=== PATIENT | female | born 1990 | race American Indian/Alaskan Native ===

== ENCOUNTER 2020-09-12 19:08 | Emergency (ER) | payer MEDICAID ==
[~2020-09-12] VITALS: Ht 167.6 cm; Wt 55.0 kg
[2020-09-12] MEDS ORDERED: normal saline 1000ML IV soln IVB ONE (19:40)
[2020-09-12] MEDS ORDERED: ondansetron/PF 4mg/2ml inj IV ONE (19:40)
[2020-09-12 19:45] LABS: BASOPHILS # (AUTO) 0.1 X10'3 (0-0.2); BASOPHILS % (AUTO) 0.4 % (0-1); EOSINOPHILS % (AUTO) 0 % (0-6); HEMOGLOBIN 15.1 g/dl (12.0-16.0); LYMPHOCYTES # (AUTO) 2.4 X10'3 (1.1-4.8); LYMPHOCYTES % (AUTO) 10.8 % (21-51); MEAN CORPUSCULAR HEMOGLOBIN 34.5 PG (27.0-31.0); MEAN CORPUSCULAR HGB CONC 34.4 g/dL (33.0-36.5); MEAN CORPUSCULAR VOLUME 100.4 FL (78-98); MEAN PLATELET VOLUME 6.8 FL (7.4-10.4); MONOCYTES # (AUTO) 0.9 X10'3 (0-0.9); MONOCYTES % (AUTO) 4.1 % (2-12); NEUTROPHILS # (AUTO) 18.9 X10'3 (1.8-7.7); NEUTROPHILS % (AUTO) 84.7 % (42-75); PLATELET COUNT 529 X10'3 (140-440); RED BLOOD COUNT 4.38 X10'6 (4.20-5.60); RED CELL DISTRIBUTION WIDTH 13.2 % (11.5-14.5); WHITE BLOOD COUNT 22.3 X10'3 (4.5-11.0)
--- NOTE | 2020-09-12 19:46 | NUR ---
PATIENT REFUSING IV AND IV MEDICATION PA AWARE
[2020-09-12 19:47] LABS: URINE HCG NEGATIVE (NEG)
[2020-09-12] MEDS: morphine 4 MG/ML inj SYRINge IV PRN ×2 (19:49→21:11)
--- NOTE | 2020-09-12 19:53 | NUR ---
US AT BEDSIDE
[2020-09-12 19:54] LABS: CLARITY,URINE CLEAR (Clear); COLOR,URINE YELLOW (Yellow); GLUCOSE, URINE NEGATIVE (Neg); KETONES,URINE TRACE mg/dl (Neg); LEUKOCYTE ESTERASE ,URINE TRACE (Neg); NITRITES, URINE POSITIVE (Neg); OCCULT BLOOD,URINE NEGATIVE (Neg); PROTEIN,URINE 30 mg/dl (Neg)
[2020-09-12 20:00] LABS: BACTERIA,URINE 4+ /HPF (Neg); RBC,URINE NONE SEEN /HPF (0-2); SQUAMOUS EPITHELIAL CELL,UR FEW /LPF (FEW); WBC,URINE 0-4 /HPF (0-4)
[2020-09-12 20:04] LABS: UA COLLECTION TYPE CLN CATCH MIDSTREAM
[2020-09-12 20:05] LABS: ALANINE AMINOTRANSFERASE 15 U/L (12-78); ALBUMIN 3.6 G/DL (3.4-5.0); ALBUMIN/GLOBULIN RATIO 0.8 (1.1-1.5); ALKALINE PHOSPHATASE 86 IU/L (46-116); ANION GAP 10 (8-16); ASPARTATE AMINO TRANSFERASE 10 U/L (10-37); BILIRUBIN,TOTAL 0.9 MG/DL (0.1-1.0); BLOOD UREA NITROGEN 7 MG/DL (7-18); BUN/CREATININE RATIO 7.4 (6.6-38.0); CALCIUM 9.6 MG/DL (8.5-10.1); CHLORIDE 103 MMOL/L (99-107); CREATININE 0.94 MG/DL (0.40-0.90); GLUCOSE 130 MG/DL (70-104); LIPASE < 50 U/L (73-393); POTASSIUM 3.1 MMOL/L (3.5-5.1); SODIUM 139 MMOL/L (135-145); TOTAL CARBON DIOXIDE 25.8 MMOL/L (24-32); eGFR 71 ML/MIN
[2020-09-12] MEDS ORDERED: ketorolac trometh. 30mg/ml inj. IV ONE (20:40)
[2020-09-12] MEDS ORDERED: CefTRIAXone 2gm/D5W 50ml BAG 50 ML IV ONE (20:40)
[2020-09-12] MEDS ORDERED: normal saline 1000ML IV soln IV ONE (20:40)
[2020-09-12 21:17] LABS: ETHANOL < 0.010 GM/DL (0.0-0.010)
[2020-09-12 21:26] LABS: URINE AMPHETAMINE SCREEN POSITIVE (Neg); URINE BARBITUATE SCREEN NEGATIVE (Neg); URINE BENZODIAZEPINES SCREEN NEGATIVE (Neg); URINE CANNABINOID SCREEN NEGATIVE (Neg); URINE COCAINE SCREEN NEGATIVE (Neg); URINE METHADONE SCREEN NEGATIVE (Neg); URINE OPIATE SCREEN NEGATIVE (Neg); URINE PHENCYCLIDINE SCREEN NEGATIVE (Neg)
[2020-09-12] MEDS ORDERED: CEPH250T PO (22:16)
[2020-09-12] MEDS ORDERED: ONDA4TAB6 PO (22:16)
[2020-09-12 22:27] VITALS: BP 118/83
== END 2020-09-12 22:29 | disposition home or self-care (01) ==
LOC: ER 19:09
DX: N39.0 Urinary tract infection, site not specified (principal); R10.84 Generalized abdominal pain; F15.90 Other stimulant use, unspecified, uncomplicated; F17.200 Nicotine dependence, unspecified, uncomplicated; Z72.89 Other problems related to lifestyle; Z79.2 Long term (current) use of antibiotics; Z79.899 Other long term (current) drug therapy
CPT/HCPCS: 36415; 74176; 76830; 76856; 80053; 80305; 80320; 81001; 81025; 83605; 83690; 84145; 85025; 87040; 87077; 87088; 87186; 93976; 96365; 99285; J0696; J7030

== ENCOUNTER 2021-01-05 22:47 | Emergency (ER) | payer MEDICAID ==
[~2021-01-05] VITALS: Ht 167.6 cm; Wt 61.0 kg
[~2021-01-05 22:47] MED LIST: ONDA4TAB6 PO
[2021-01-05 23:14] VITALS: BP 118/75
== END 2021-01-06 01:05 | disposition left against medical advice (07) ==
LOC: ER 22:48
DX: R20.2 Paresthesia of skin (principal); Z53.21 Procedure and treatment not carried out due to patient leaving prior to being seen by health care provider